=== PATIENT | male | born 1985 | race Caucasian/White ===

== ENCOUNTER 2017-05-07 16:45 | Emergency (ER) | payer BC ==
--- NOTE | 2017-05-07 20:06 | EDM.PDOC ---
ED HPI GENERAL MEDICAL PROBLEM - General Chief Complaint: Upper Extremity Injury/Pain Stated Complaint: R SHOULDER PAIN Time Seen by Provider: 05/07/17 17:18 - History of Present Illness INITIAL COMMENTS - FREE TEXT/NARRATIVE: 31-year-old male presents emergency room with right shoulder pain. Patient injured his right shoulder about 6 weeks ago and he has significant pain with this. The patient was bowling and as he recalls something popped. Since that time this is not improved the patient's tried ibuprofen without much success. At times he has really severe pain with this. Patient is currently treated for colitis. He can take ibuprofen without difficulty Right Shoulder Pain Score (Numeric/FACES): 6 - Related Data Allergies Allergy/AdvReac Type Severity Reaction Status Date / Time No Known Allergies Allergy Verified 05/07/17 16:50 Home Meds: Home Meds Acetaminophen/HYDROcodone [Sagola 325-5 MG] 1 - 2 tab PO Q6H PRN #20 tablet 05/07 [Rx] Ibs Med. 1 tab PO QID 05/07/17 [History] Past Medical History Gastrointestinal History: Reports: Irritable Bowel Syndrome - Past Surgical History GI Surgical History: Reports: Colonoscopy Social & Family History - Tobacco Use Smoking Status *Q: Current Every Day Smoker Years of Tobacco use: 11 Packs/Tins Daily: 0.5 Used Tobacco, but Quit: No - Caffeine Use Caffeine Use: Reports: Coffee - Recreational Drug Use Recreational Drug Use: No Review of Systems - Review of Systems Review Of Systems: See Below Constitutional: Reports: No Symptoms Respiratory: Reports: No Symptoms Cardiovascular: Reports: No Symptoms GI/Abdominal: Reports: No Symptoms ED EXAM, GENERAL - Physical Exam Exam: See Below Exam Limited By: No Limitations General Appearance: Alert, No Apparent Distress Neck: Normal Inspection, Supple, Non-Tender, Other (No significant muscle spasm) . No: Tender Lateral, Tender Midline Respiratory/Chest: No Respiratory Distress, Lungs Clear, Normal Breath Sounds Cardiovascular: Regular Rate, Rhythm, No Edema, No Murmur Extremities: Other (Examination patient's right shoulder is very difficult because it's been sore for a while the patient cannot hold his arm out away from him very far without exquisite discomfort. His pain is more posterior in the shoulder doesn't seem to fully affect the deltoid bandage however exam is significantly limited because of his discomfort. Neurovascular status of the hand is otherwise normal) Course - Vital Signs Last Recorded V/S: Last Vital Signs Temp 36.7 C 05/07/17 16:51 Pulse 71 05/07/17 16:51 Resp 18 05/07/17 16:51 BP 134/119 H 05/07/17 16:51 Pulse Ox 100 05/07/17 16:51 - Orders/Labs/Meds Orders: Active Orders 24 hr Category Date Time Status Shoulder Comp Rt [CR] Stat Exams 05/07/17 19:06 Taken Meds: Medications Discontinued Medications Generic Name Dose Route Start Last Admin Trade Name Freq PRN Reason Stop Dose Admin Hydrocodone Bitart/Acetaminophen 1 tab 05/07/17 20:17 05/07/17 20:25 Sagola 325-5 Mg PO 05/07/17 20:18 1 tab ONETIME ONE Administration - Re-Assessments/Exams Free Text/Narrative Re-Assessment/Exam: 05/07/17 20:31 X-ray examination of the shoulder is negative for acute fracture dislocation or significant abnormality. Discussed the findings with the patient he will probably need an MRI in the near future to sort this out. We will attempt put him in a sling and hopefully this will get him some relief so when he follows up with orthopedics he can have a better examination. Patient will use nonsteroidals, ibuprofen as needed for discomfort he is given a prescription for Sagola for the more severe pain number 20/05/24 one or 2 every 6 hours as needed Departure - Departure Time of Disposition: 20:18 Disposition: Home, Self-Care 01 Clinical Impression: Right shoulder injury - Discharge Information Prescriptions: Acetaminophen/HYDROcodone [Sagola 325-5 MG] 1 - 2 tab PO Q6H PRN #20 tablet PRN Reason: Pain Referrals: Phu Herrera MD [Primary Care Provider] - Forms: ED Department Discharge Additional Instructions: Return to the emergency room with any questions problems worsening symptoms. Follow up with Dr. Amaya at the end of this next week. [phone]. Use Motrin or Naprosyn for pain control. You have been given a prescription for Sagola use this for more severe pain. If using this on a regular basis take a stool softener push fluids to avoid constipation. Allow 12 hours after using this before driving or using potentially hazardous equipment or returning to work. Wear the sling as tolerated do not drive while using the sling - My Orders Last 24 Hours: My Active Orders 05/07/17 19:06 Shoulder Comp Rt [CR] Stat - Assessment/Plan Last 24 Hours: My Active Orders 05/07/17 19:06 Shoulder Comp Rt [CR] Stat
[2017-05-07] MEDS ORDERED: Acetaminophen/HYDROcodone 325-5 MG Tab PO ONE (20:17)
--- NOTE | 2017-05-08 10:23 | CR ---
Right shoulder: Three views of the right shoulder were obtained. Comparison: No previous study. Acromioclavicular and glenohumeral joints appear within normal limits. No fracture, dislocation or other bony abnormality is identified. Impression: 1. No abnormality is identified on three-view right shoulder study. Diagnostic code #1
== END 2017-05-07 20:35 | disposition home or self-care (01) ==
LOC: SUPCPDRO 16:45 → JD.ED 16:45
DX: S49.91XA Unspecified injury of right shoulder and upper arm, initial encounter (principal); F17.210 Nicotine dependence, cigarettes, uncomplicated; X58.XXXA Exposure to other specified factors, initial encounter; Y93.54 Activity, bowling
CPT/HCPCS: 73030; 99283; A9270